=== PATIENT | female | born 1940 | race Caucasian/White ===

== ENCOUNTER 2017-04-15 07:38 | Day surgery (SDC) | payer MEDICARE ==
[~2017-04-15] VITALS: Ht 152.4 cm; Wt 84.4 kg
[~2017-04-15 07:38] MED LIST: CeFAZolin 2 Gm/50 mL D5W IV Premix IV ONE; Lactated Ringer's 1,000 ML IV SCH; OXYB5TAB10 PO
[2017-04-15 07:56] VITALS: BP 135/56; PULSE 67; RESP 16; O2SAT 96
--- NOTE | 2017-04-15 08:54 | PCM.HPANE ---
Patient Data Date of Service: Apr 15, 2017 Surgeon Admitting Provider: Attending Provider:Leeanna Thomas MD Primary Care Physician:Radha Barlow Other Provider:Akash Unger Anesthesia Reason for Visit Mixed Incontinence, Urgency Of Urination Ht/WT & BMI Height (Feet): 5 Height (Inches): 0.00 Weight (Kilograms): 84.370 Body Mass Index 36.00 Allergies Coded Allergies: Penicillins (Verified Allergy, Severe, HIVES (IN CHILDHOOD), 04/14/17) codeine (Verified Allergy, Unknown, UNKNOWN, 04/14/17) escitalopram (Verified Allergy, Unknown, UNKNOWN, 04/14/17) hydrocodone (Verified Adverse Reaction, Mild, nausea, 04/15/17) oxycodone (Verified Adverse Reaction, Mild, nausea, 04/15/17) Uncoded Allergies: SODIUM PENTOTHAL (Allergy, Unknown, UNKNOWN, 04/14/17) Past Anesthesia History Anesthesia History: Denies:: Anesthesia Reactions, Malignant Hyperthermia Diabetes History Hx Diabetes?: No MRSA MRSA: No Medications Blood Thinner: Aspirin Hypertension Medication: Yes (LISINOOPRIL) Reported Medications Oxybutynin Chloride 5 Mg Tablet5 Mg PO Q 3 DAYS Ref 0 04/14/17 Discontinued Reported Medications Cholecalciferol (Vitamin D3) (Vitamin D)1,000 Unit Capsule2,000 Unit PO DAILY # 1 BOTTLE Ref 0 04/14/17 Mirabegron ER (Myrbetriq)25 Mg [id number] Mg PO DAILY 04/14/17 Lisinopril 10 Mg Csbzzq40 Mg PO DAILY 30 Days Ref 0 04/14/17 Hydrocortisone (Ala-Michael)2.5 % Cream..g.30 Gm TP BID 04/14/17 Bupropion ER 150 Mg Tablet.er150 Mg PO BID Ref 0 04/14/17 Aspirin 81 Mg Iggzmd24 Mg PO DAILY Ref 0 04/14/17 History History of ENT Problems?: No HEENT History: Denies:: Abnormal Airway Cataracts Difficult Intubation Dysphagia Glaucoma Hearing Problem Sinus Problem TMJ Denture Type: None Teeth Condition: Within Normal Limits Hx of Heart Problems?: Yes Cardiovascular History: Positive for:: Hypertension Denies:: Heart Murmur Hx of Respiratory Problem?: Yes Respiratory History: Denies:: Use of C-PAP Machine (SNORES) Hx Neurologic Problems?: Yes Other Neurological Pertinent: HX SHINGLES Hx of GI Problems?: Yes Other GI Pertinent History: S/P APPY PT CONSIDERING BARIATRIC SURGERY Hx of Problems?: Yes Female Hx: Positive for:: Problems with Breasts? (RECURRENT MASTITIS S/P EXC MASTITIS) Denies:: Currently Skin History: Denies:: History Skin Disorders? Pressure Ulcers Hx Musculoskeletal Problems?: No Hx of Psycho/Social Problems?: Yes Psycho Social History: Positive for:: Hx Depression (PT FEELS DEPRESSION IS R/ T HER WEIGHT GAIN/OBESITY) Hx Surgeries?: Yes (MASTITIS EXC,ERVIN,APPY) Hx Any Other Health Problems?: Yes Other History: Denies:: Cancer Endocrine Disease Hospitalization Thyroid Disease Hx Diabetes: No Have You Smoked inLast 12 mo: NoApprox How Many Cigarettes/day: 30YR HX Stop/Bang Treated for Sleep Apnea?: No Do You Have a CPAP Machine?: No S-Snoring: Do You Snore Loudly: Yes T-Tired: feel tired, fatigued: No O-Obsered: Observed not breath: No P-Blood Pressure: treated: No B- Body Mass Index > 35 kg/m2: Yes A- Age over 50: Yes N- Neck Large Circumference: No G- Gender Male: No DELFINO Total Score: 4 DELFINO Risk Assessment: Low Risk, <3 Yes Risk Assessment Category Category 1A: Patient has history of documented sleep apnea, and HAS NOT received any narcotic, sedative or anesthesia administration during this stay. Category 1B: Patient has history of documented sleep apnea, and HAS received any narcotic , sedative or anesthesia administration during this stay Category 2: Patient has SUSPECTED Obstructive Sleep Apnea, and HAS received any narcotic , sedative or anesthesia administration during this stay. Category 3: Patient has SUSPECTED Obstructive Sleep Apnea and HAS NOT received narcotic, sedative or anesthesia administration during this stay. Category 4: Outpatient in Procedural Areas with known sleep apnea or who screen positive for High Risk via the STOP/BANG questionnaire. Exam Exam Vital Signs Vital Signs Date Time Temp Pulse Resp B/P Pulse Ox O2 Delivery O2 Flow Rate FiO2 04/15/17 07:56 36.2 67 16 135/56 96 Room Air General Appearance: Alert, Oriented X3 HEENT/AIRWAY: MP 2 Lungs: Clear to Auscultation, Clear to Percussion Heart: Exam Unremarkable, Regular Rate/Rhythm Plan Impression Patient chart reviewed, patient interviewed and anesthestic plan with risks, benefits, and alternatives discussed, and informed consent obtained. NPO per Anesth. Guidelines: Yes ASA Physical Status: ASA2 Mod Systemic Disease Anesthetic Plan: MAC Bene/Risks/Altern/Consents: Yes HP Complete Prior to Induction: Yes Kendall Noonan MD Apr 15, 2017 08:54
[2017-04-15] MEDS ORDERED: Vancomycin 1,000 mg Inj IRRIGATION ONE (10:40)
[2017-04-15] MEDS ORDERED: Bupivacaine-MPF 0.5% W/EPI 30 mL Inj INJ ONE (10:40)
[2017-04-15] MEDS ORDERED: Gentamicin 40 mg/mL 2 mL Inj IRRIGATION ONE (10:40)
[2017-04-15] MEDS ORDERED: Lactated Ringer's 500 ML IV PRN (10:54)
[2017-04-15] MEDS ORDERED: Lactated Ringer's 1,000 ML IV SCH (10:54)
[2017-04-15] MEDS ORDERED: Ondansetron 2 mg/mL 2 mL Inj IVPUSH PRN (10:55)
[2017-04-15] MEDS ORDERED: Phenylephrine 10,000 mCg/mL Inj IVPUSH PRN (10:55)
[2017-04-15] MEDS ORDERED: Dexamethasone 4 mg/mL Inj IVPUSH PRN (10:55)
[2017-04-15] MEDS ORDERED: EPHEDrine Sulfate 50 mg/mL Inj IVPUSH PRN (10:55)
[2017-04-15] MEDS ORDERED: fentaNYL-PF 50 mCg/mL 2 mL Inj IVPUSH PRN (10:55)
[2017-04-15 11:40] VITALS: BP 115/48; PULSE 68; RESP 16; O2SAT 98
[2017-04-15] MEDS ORDERED: Ondansetron 8 mg ODT Tablet PO PRN (11:45)
--- NOTE | 2017-04-15 12:25 | PCM.ANEP1 ---
Post Anesthesia PACU Phase 1 Assessment Vital Signs Vital Signs Date Time Temp Pulse Resp B/P Pulse Ox O2 Delivery O2 Flow Rate FiO2 04/15/17 11:40 36.8 68 16 115/48 98 Room Air 04/15/17 07:56 36.2 67 16 135/56 96 Room Air Anesthetic Administered: MAC Level of Alertness: Awake, talking PLAZA's with Equal Strength: Yes Pain: No Nausea or Vomiting: No CV Function & Hydration Stable: Yes Airway Device: Oxygen Delivery: Room Air Lungs: Clear to Auscultation, Clear to Percussion Dermatome Level: Full Sensation PACU Phase 2 Assessment Complications: No Follow up Care: N/A Patient Instructions Provided: N/A Kendall Noonan MD Apr 15, 2017 12:24
--- NOTE | 2017-04-18 08:42 | OP ---
[address] [address] OPERATIVE REPORT PATIENT: KHUSHBU [place] : 1940 MR#: [id number] ADMIT: 04/15/2017 JOB ID: [id number] DATE OF SURGERY: 04/15/2017 PROCEDURE: Stage 1 InterStim implant to include quadripolar electrode placement transforaminally, and fluoroscopy imaging and guidance. SURGEON: Leeanna Thomas MD ANESTHESIA: Local with monitored anesthesia care and IV sedation. PREOPERATIVE DIAGNOSIS(ES): Intractable urinary urgency, frequency, urge incontinence. POSTOPERATIVE DIAGNOSIS(ES): Intractable urinary urgency, frequency, urge incontinence. INDICATIONS: The patient is a 76-year-old woman with a longstanding history of severe urinary symptoms, trying and failing numerous conservative measures as well as multiple medications, behavioral changes, electing trial of sacral nerve modulation. PROCEDURE IN DETAIL: After appropriate informed consent was obtained, the patient was brought to the operating room. She received IV Ancef prior to onset of procedure. She was made comfortable in the prone position. All pressure points carefully padded. Cleaned, prepped, and draped in the usual sterile fashion. Fluoroscope was brought in. The bony landmarks were identified and marked out the medial borders of the S3 foramen. We used a half/half mixture of lidocaine, Marcaine for local anesthesia, with epinephrine. We numbed up the areas of interest, and used a finder needle to traverse ultimately the right and left S3 foramen. We had good responses of javier and flexion of toe to indicate good placement. We chose a location on the patient's right. Once we had good responses, with a finder needle, we converted this in Seldinger fashion to the quadripolar electrode. We had good responses on all four electrodes at low thresholds comfortable for the patient. Once we had this position fluoroscopically in good position, we removed the access sheath, allowing the tines to deploy and locking the lead into place. We tunneled the distal end of the lead out to a pocket site which was treated underneath the right iliac crest again using lidocaine and Marcaine with epinephrine for pain control. We created a pocket, sharply bluntly with electrocautery. Hemostasis was achieved with electrocautery. We tunneled the distal end of the lead out to the pocket, made connections to the temporary extension wire, using the boot connection which was tied with a 2-0 silk suture. Once we had the connection made, we tunneled the distal end of the extension wire out to the patient's left side to maximize distance between the eventual pocket site and the permanent lead from the externalized portion of the wire. Hemostasis was achieved with electrocautery. The wounds were irrigated out copiously with vancomycin and gentamicin solution, and then closed with two layers, a layer of 2-0 Vicryl suture, layer of running 4-0 Monocryl, and benzoin and Steri-Strips. Sterile dressings were applied. The patient tolerated the procedure very well. Was awakened, taken to the one-day surgery area prior to discharge to home. ZOHREH
== END 2017-04-15 23:59 | disposition home or self-care (01) ==
LOC: SAS 07:38
PROVIDERS: ATTEND Urology
PROC: 01HY0MZ Insertion of Neurostimulator Lead into Peripheral Nerve, Open Approach (ICD-10-PCS; principal; 2017-04-15 09:15)
DX: N39.46 Mixed incontinence (principal); F32.9 Major depressive disorder, single episode, unspecified; E66.9 Obesity, unspecified; Z87.891 Personal history of nicotine dependence; R35.1 Nocturia; Z68.30 Body mass index [BMI] 30.0-30.9, adult; Z79.82 Long term (current) use of aspirin; I10 Essential (primary) hypertension
CPT/HCPCS: 64581; 76000; C1778; J0690; J1580; J3370; J7120

== ENCOUNTER 2017-04-20 07:32 | Day surgery (SDC) | payer MEDICARE, OTHER ==
[~2017-04-20] VITALS: Ht 152.4 cm; Wt 87.1 kg
[2017-04-20 07:48] VITALS: BP 131/59; PULSE 71; RESP 15; O2SAT 96
[2017-04-20] MEDS ORDERED: Lactated Ringer's 1,000 ML IV SCH (08:08)
[2017-04-20] MEDS ORDERED: Lactated Ringer's 500 ML IV PRN (08:08)
[2017-04-20] MEDS ORDERED: Dexamethasone 4 mg/mL Inj IVPUSH PRN (08:10)
[2017-04-20] MEDS ORDERED: EPHEDrine Sulfate 50 mg/mL Inj IVPUSH PRN (08:10)
[2017-04-20] MEDS ORDERED: MetoCLOpramide 5 mg/mL 2 mL Inj IVPUSH PRN (08:10)
[2017-04-20] MEDS ORDERED: fentaNYL-PF 50 mCg/mL 2 mL Inj IVPUSH PRN (08:10)
[2017-04-20] MEDS ORDERED: HYDROmorphone 1 mg/mL Inj IVPUSH PRN (08:10)
[2017-04-20] MEDS ORDERED: Ondansetron 2 mg/mL 2 mL Inj IVPUSH PRN (08:10)
[2017-04-20] MEDS ORDERED: Phenylephrine 10,000 mCg/mL Inj IVPUSH PRN (08:10)
[2017-04-25] MEDS ORDERED: BUPR150T9 PO (17:26)
[2017-04-25] MEDS ORDERED: CHOL200025 PO (17:26)
[2017-04-25] MEDS ORDERED: LISI10TA PO (17:26)
[2017-04-25] MEDS ORDERED: OXYB5TAB10 PO (17:26)
[2017-04-25] MEDS ORDERED: HYDR28OI2 TP (17:26)
[2017-04-25] MEDS ORDERED: MIRA25TA PO (17:26)
[2017-04-25] MEDS ORDERED: ASPI-973 PO (17:26)
== END 2017-04-20 23:59 | disposition home or self-care (01) ==
LOC: SAS 07:32 → EDUNIT# 08:45 → SAS 23:59
PROVIDERS: ATTEND Urology
DX: N39.46 Mixed incontinence (principal); Z53.8 Procedure and treatment not carried out for other reasons

== ENCOUNTER 2017-04-29 07:16 | Day surgery (SDC) | payer MEDICARE ==
[~2017-04-29] VITALS: Ht 152.4 cm; Wt 86.2 kg
[~2017-04-29 07:16] MED LIST changes: +ASPI-973 PO; +BUPR150T9 PO; +CHOL200025 PO; +HYDR28OI2 TP; +LISI10TA PO; -Lactated Ringer's 1,000 ML IV SCH; +MIRA25TA PO
[2017-04-29] MEDS ORDERED: fentaNYL-PF 50 mCg/mL 2 mL Inj ONE (07:17)
[2017-04-29] MEDS: Lactated Ringer's 1,000 ML IV SCH ×2 (07:34→09:59)
[2017-04-29 07:57] VITALS: BP 138/67; PULSE 72; RESP 16; O2SAT 98
--- NOTE | 2017-04-29 09:43 | PCM.HPANE ---
Patient Data Surgeon Admitting Provider: Attending Provider:Leeanna Thomas MD Primary Care Physician:Radha Barlow Other Provider:Akash Unger Anesthesia Reason for Visit Mixed Incontinence, Urgency Of Urination Ht/WT & BMI Height (Feet): 5 Height (Inches): 0.00 Weight (Kilograms): 86.2 Body Mass Index 37.00 Allergies Coded Allergies: Penicillins (Verified Allergy, Severe, HIVES (IN CHILDHOOD), 04/19/17) codeine (Verified Allergy, Unknown, UNKNOWN, 04/19/17) escitalopram (Verified Allergy, Unknown, UNKNOWN, 04/19/17) hydrocodone (Verified Adverse Reaction, Mild, nausea, 04/19/17) oxycodone (Verified Adverse Reaction, Mild, nausea, 04/19/17) Uncoded Allergies: SODIUM PENTOTHAL (Allergy, Unknown, UNKNOWN, 04/14/17) Past Anesthesia History Anesthesia History: Denies:: Abnormal Airway, Anesthesia Reactions, Difficult Intubation, Malignant Hyperthermia Diabetes History Hx Diabetes?: No MRSA MRSA: No Medications Blood Thinner: Aspirin Hypertension Medication: Yes Home Meds Incl Beta Jay: No Reported Medications Cholecalciferol (Vitamin D3) (Vitamin D3)2,000 Unit Tablet2,000 Unit PO DAILY 04/25/17 Oxybutynin Chloride 5 Mg Tablet5 Mg PO TID Ref 0 04/25/17 Mirabegron ER (Myrbetriq)25 Mg Bkhqhe86 Mg PO DAILY 04/25/17 Lisinopril 10 Mg Bnrujh99 Mg PO DAILY 30 Days Ref 0 04/25/17 Hydrocortisone Acetate (Hydrocortisone)28 Gm Oint...g.28 Gm TP PRN skin irritation 04/25/17 Bupropion HCl (Zyban)150 Mg Tablet.er150 Mg PO BID 04/25/17 Aspirin 81 Mg Wsreuu88 Mg PO DAILY Ref 0 04/25/17 Discontinued Reported Medications Oxybutynin Chloride 5 Mg Tablet5 Mg PO Q 3 DAYS Ref 0 04/14/17 History History of ENT Problems?: No HEENT History: Denies:: Abnormal Airway Cataracts Difficult Intubation Dysphagia Hearing Problem Sinus Problem TMJ Denture Type: None Teeth Condition: Within Normal Limits Hx of Heart Problems?: Yes Cardiovascular History: Positive for:: Hypertension Denies:: Heart Murmur Hx of Respiratory Problem?: No Respiratory History: Denies:: Use of C-PAP Machine Other History/Comment ROS negative Hx Neurologic Problems?: No Neurological History: Denies:: Alzheimer's Disease CVA Dementia Dizziness Headaches Multiple Sclerosis Parkinson's Disease Peripheral Neuropathy Seizures TIA Hx of GI Problems?: No Hx of Problems?: No Female Hx: Positive for:: Problems with Breasts? (RECURRENT MASTITIS S/P EXC MASTITIS) Denies:: Currently Skin History: Positive for:: History Skin Disorders? (current outbreak of hives) Denies:: Pressure Ulcers Hx Musculoskeletal Problems?: No Musculoskeletal History: Positive for:: Musculoskeletal Trauma (HX FX FOOT) Hx of Psycho/Social Problems?: Yes Psycho Social History: Positive for:: Hx Depression (PT FEELS DEPRESSION IS R/ T HER WEIGHT GAIN/OBESITY) Hx Surgeries?: Yes (MASTITIS EXC,ERVIN,APPY,INTERSTIM THERAPY STAGE I) Hx Any Other Health Problems?: Yes Other History: Denies:: Cancer Endocrine Disease Hospitalization Thyroid Disease Hx Diabetes: No Smoking Status: Former Smoker Have You Smoked inLast 12 mo: No Stop/Bang Treated for Sleep Apnea?: No Do You Have a CPAP Machine?: No P-Blood Pressure: treated: Yes B- Body Mass Index > 35 kg/m2: Yes A- Age over 50: Yes N- Neck Large Circumference: No G- Gender Male: No Risk Assessment Category Category 1A: Patient has history of documented sleep apnea, and HAS NOT received any narcotic, sedative or anesthesia administration during this stay. Category 1B: Patient has history of documented sleep apnea, and HAS received any narcotic , sedative or anesthesia administration during this stay Category 2: Patient has SUSPECTED Obstructive Sleep Apnea, and HAS received any narcotic , sedative or anesthesia administration during this stay. Category 3: Patient has SUSPECTED Obstructive Sleep Apnea and HAS NOT received narcotic, sedative or anesthesia administration during this stay. Category 4: Outpatient in Procedural Areas with known sleep apnea or who screen positive for High Risk via the STOP/BANG questionnaire. Exam Exam Vital Signs Vital Signs Date Time Temp Pulse Resp B/P Pulse Ox O2 Delivery O2 Flow Rate FiO2 04/29/17 07:57 36.2 72 16 138/67 98 Room Air General Appearance: Alert, Oriented X3, Cooperative HEENT/AIRWAY: MP 2 Lungs: Clear to Auscultation, Normal Air Movement Heart: Exam Unremarkable, Regular Rate/Rhythm, No Murmurs/Rubs/Gallops Meds/Labs/Diagnostics Admission Meds Current Medications Lactated Ringer's (Lr) 1,000 ml @ 120 mls/hr [id number] IV Last administered on t 07:34; Start 04/29/17 at 05:00; Stop 04/29/17 at 13:19 Plan Impression Patient chart reviewed, patient interviewed and anesthestic plan with risks, benefits, and alternatives discussed, and informed consent obtained. NPO per Anesth. Guidelines: Yes ASA Physical Status: ASA2 Mod Systemic Disease Anesthetic Plan: MAC Bene/Risks/Altern/Consents: Yes HP Complete Prior to Induction: Yes Patrick Dietz MD Apr 29, 2017 09:43
[2017-04-29] MEDS ORDERED: Vancomycin 1,000 mg Inj IRRIGATION ONE (10:13)
[2017-04-29] MEDS ORDERED: Gentamicin 40 mg/mL 2 mL Inj IRRIGATION ONE (10:13)
[2017-04-29] MEDS ORDERED: Bupivacaine-MPF 0.5% W/EPI 30 mL Inj INJ ONE (10:13)
[2017-04-29] MEDS ORDERED: Ondansetron 8 mg ODT Tablet PO PRN (10:50)
[2017-04-29 10:55] VITALS: BP 140/64; PULSE 71; RESP 16; O2SAT 97
[2017-04-29 11:07] VITALS: BP 113/62; PULSE 65; RESP 16; O2SAT 98
--- NOTE | 2017-04-29 11:54 | PCM.ANEP1 ---
Post Anesthesia PACU Phase 1 Assessment Vital Signs Vital Signs Date Time Temp Pulse Resp B/P Pulse Ox O2 Delivery O2 Flow Rate FiO2 04/29/17 11:07 65 16 113/62 98 Room Air 04/29/17 10:55 36.7 71 16 140/64 97 Room Air 04/29/17 07:57 36.2 72 16 138/67 98 Room Air Anesthetic Administered: MAC Level of Alertness: Awake, talking PLAZA's with Equal Strength: Yes Pain: No Nausea or Vomiting: No CV Function & Hydration Stable: Yes Airway Device: Oxygen Delivery: Room Air Lungs: Clear to Auscultation, Normal Air Movement Dermatome Level: Full Sensation PACU Phase 2 Assessment Complications: No Follow up Care: N/A Patient Instructions Provided: N/A Patrick Dietz MD Apr 29, 2017 11:54
--- NOTE | 2017-04-30 15:05 | OP ---
[address] [address] OPERATIVE REPORT PATIENT: KHUSHBU [place] : 1940 MR#: [id number] ADMIT: 04/29/2017 JOB ID: [id number] DATE OF SURGERY: 04/29/2017 PROCEDURE NAME: Stage 2 InterStim implant to include 1 implantable pulse generator implantation 2 complex initial programming and setup of device. SURGEON: Leeanna Thomas MD. ANESTHESIA: Local with monitored anesthesia care and IV sedation. PREOPERATIVE DIAGNOSIS(ES): Intractable urinary urgency, frequency, urge incontinence. POSTOPERATIVE DIAGNOSIS(ES): Intractable urinary urgency, frequency, urge incontinence. INDICATIONS: The patient is a 36-year-old woman with intractable severe symptoms, wishing to proceed with 3rd line therapy to include trial of sacral neuromodulation. Patient underwent a right-sided lead placement on April 15, 2017, and ultimately had very good results with no pad usage and no urge accidents, greatly decreased frequency, urgency over the last five days of her trial. She had strong desire to proceed with implantation with far better than 50% improvement on her symptoms. PROCEDURE IN DETAIL: After appropriate informed consent was obtained, the patient was brought to the operating room. She received IV Ancef prior to onset of the procedure. She was made comfortable in the prone position. All pressure points carefully padded. Cleaned, prepped, and draped in the usual sterile fashion. Half/half mixture of lidocaine, Marcaine was used to infiltrate the area overlying the right-sided buttock pocket. This was anesthetized and we sharply, bluntly, and with electrocautery made entry into the pocket. Found the connection to the extension wire. This was severed. Distal end was allowed to fall outside the patient's body. We removed the extension wire on the inside with the screwdriver, expand the pocket to accept the size of the Medtronic 2 IPG. This was done sharply, bluntly, with electrocautery. We used electrocautery for hemostasis. We then irrigated out with vancomycin, gentamicin, sterile water. Attached the dry, clean distal end of the lead to the Medtronic 2 IPG. Ratcheted screwdriver was used to tighten this. Gentle tug revealed a good connection. Placed and fit nicely into the pocket. It was irrigated out further with antibiotic solution and then closed in a layer of 2-0 Vicryl suture, a layer of 4-0 Monocryl, and a layer of Dermabond. Lidocaine and Marcaine again was used for postop pain control. She tolerated the procedure very well, was taken awake back to the one-day surgery area, where once she was a little less sleepy, her device was turned on and set up initially with a rate of 14, pulse width of 210. Program one was set up as 0 negative and 3 positive. Program two was 1 negative and 3 positive. Program three was 2 negative and 0 positive. Program four was 3 negative and 0 positive. Patient felt stimulation at appropriate location. ZOHREH
== END 2017-04-29 23:59 | disposition home or self-care (01) ==
LOC: SAS 07:16
PROVIDERS: ATTEND Urology
DX: N39.46 Mixed incontinence (principal); R35.0 Frequency of micturition; I10 Essential (primary) hypertension; F32.9 Major depressive disorder, single episode, unspecified; E66.9 Obesity, unspecified; Z68.36 Body mass index [BMI] 36.0-36.9, adult; Z79.82 Long term (current) use of aspirin; Z87.891 Personal history of nicotine dependence
CPT/HCPCS: 64590; 95972; C1767; J0690; J1580; J2250; J3010; J3370; J7120